=== PATIENT | female | born 1995 | race African-American/Black ===

== ENCOUNTER 2017-07-06 19:23 | Emergency (ER) | payer SELFPAY ==
[~2017-07-06] VITALS: Ht 170.2 cm; Wt 68.0 kg
[~2017-07-06 19:23] MED LIST: ATIVAN0.5 MG ORAL; NKM; SILVADENE CREAM50 GM TOP; VICODIN ES1 EA ORAL; [UNRECOGNIZED DRUG - OTHER]
[2017-07-06] MEDS ORDERED: NKM (19:28)
[2017-07-06 19:34] VITALS: BP 96/61
[2017-07-06 19:53] LABS: APPEARANCE,URINE CLEAR; BILIRUBIN, URINE NEGATIVE (NEGATIVE); COLOR,URINE YELLOW; GLUCOSE, URINE (UA) NEGATIVE (NEGATIVE); KETONES,URINE 1+ (NEGATIVE); LEUKOCYTE ESTERASE ,URINE 2+ (NEGATIVE); NITRITE,URINE NEGATIVE (NEGATIVE); PH,URINE 5 (4.5-8.0); PROTEIN,URINE NEGATIVE (NEGATIVE); UROBILINOGEN,URINE 1 MG/DL (0.0-1.0)
[2017-07-06] MEDS ORDERED: PEPCID40 MG PO (19:54)
[2017-07-06] MEDS ORDERED: MAALOX MAXIMUM355 M1 PO (19:54)
[2017-07-06] MEDS ORDERED: Mylanta II UD 30ml ORAL ONE (20:00)
[2017-07-06] MEDS ORDERED: Lidocaine 2% Visc 15ml soln ORAL ONE (20:00)
[2017-07-06 20:04] VITALS: BP 96/61
--- NOTE | 2017-07-06 20:16 | Emergency Room Report ---
History of Present Illness General Chief Complaint: Abdominal Pain Source: Patient Present Illness HPI 21YOF walk-in with 6 months intermittent Epigastric pain, occurs after eating any food, spicy or not. No associated nausea, vomiting, diarrhea. No recent or or contacts. No history of ulcers, a ladder disease or prior abdominopelvic surgery. Has not taken any [id number] medication for pain. Currently does not have any pain. Denies any associated urinary symptoms. Allergies: Coded Allergies: No Known Allergies (Unverified , 11/04/12) Patient History Past Medical History: none Past Surgical History: none Pertinent Family History: none Social History: Denies: smoking, alcohol use, drug use Last Menstrual Period: 2 weeks ago Now: No Immunizations: UTD Reviewed Nursing Documentation: PSxH: Agreed Nursing Documentation-PMH Past Medical History: No Stated History Review of Systems All Other Systems: negative except mentioned in HPI Physical Exam Vital Signs Date Time Temp Pulse Resp B/P (MAP) Pulse Ox O2 Delivery O2 Flow Rate FiO2 07/06/17 19:25 97.9 92 16 96/61 99 Room Air Sp02 EP Interpretation: reviewed, normal General Appearance: normal inspection, well appearing, no apparent distress, alert, GCS 15, non-toxic Head: normocephalic, atraumatic Eyes: bilateral eye PERRL, bilateral eye EOMI ENT: normal ENT inspection, hearing grossly normal, normal pharynx, no angioedema, normal voice, TMs + canals normal, uvula midline, moist mucus membranes Neck: normal inspection, full range of motion, supple, thyroid normal, no meningismus, no bony tend Respiratory: normal inspection, lungs clear, normal breath sounds, no rhonchi, no respiratory distress, no retraction, no accessory muscle use, no wheezing, speaking full sentences Cardiovascular #1: regular rate, rhythm, no edema, no JVD, normal capillary refill Gastrointestinal: normal inspection, normal bowel sounds, soft, no mass, no peritonitis, non-distended, no guarding, no hernia, no pulsatile mass, other - Mild epigastric tenderness to palpation Genitourinary: no CVA tenderness Musculoskeletal: normal inspection, back normal, normal range of motion, no calf tenderness, pelvis stable, Jim's Sign negative Neurologic: normal inspection, alert, oriented x3, responsive, 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 Nonfocal abdomen on exam Given epigastric tenderness possible gastritis given worsening with eating Will do trial of Pepcid with when necessary Maalox Understands to followup with PMD for GI referral if no improvement to evaluate with endoscopy for possible ulcers or PUD ER course: Patient has remained stable during ED stay. Disposition: Patient is to be discharged to home. Prescriptions given are pepcid, maalox Patient is instructed to follow up with their primary care doctor within 5 days. Strict return precautions discussed with patient such as fever, chills, worsening/severe pain, nausea, vomiting, which may indicate severe illness. Patient verbalizes understanding and agrees with plan. Please note that this Emergency Department Report was dictated using [employer]uminating engineer technology software, occasionally this can lead to erroneous entry secondary to interpretation by the dictation equipment Last Vital Signs Date Time Temp Pulse Resp B/P (MAP) Pulse Ox O2 Delivery O2 Flow Rate FiO2 07/06/17 20:04 97.9 92 16 96/61 99 Room Air Status: improved Disposition: HOME, SELF-CARE Condition: Improved Scripts Famotidine (PEPCID) 40 Mg Tablet 40 MG PO DAILY for 14 Days, #14 TAB 0 Refills Prov: WINNIE WHEATLEY M.D. 07/06/17 Mag Hydrox/Al Hydrox/Simeth (MAALOX MAXIMUM STRENGTH SUSP) 355 Ml Oral.susp 10 ML PO TID for 7 for 7 Days, #1 UNIT Prov: WINNIE WHEATLEY M.D. 07/06/17 Patient Instructions: Gastritis, Adult, [id number] Additional Instructions: - Take pepcid every morning for 1-2 weeks or until symptoms STOP - STOP eating spicy food - use maalox during the day for pain after eating WINNIE WHEATLEY M.D. Jul 06, 2017 20:16
== END 2017-07-06 20:04 | disposition home or self-care (01) ==
LOC: EMR 19:51
DX: K29.70 Gastritis, unspecified, without bleeding (principal)
CPT/HCPCS: 81003; 81025; 99283

== ENCOUNTER 2018-01-05 20:58 | Emergency (ER) | payer SELFPAY ==
[~2018-01-05] VITALS: Ht 172.7 cm; Wt 72.6 kg
[~2018-01-05 20:58] MED LIST changes: +MAALOX MAXIMUM355 M1 PO; +PEPCID40 MG PO
--- NOTE | 2018-01-05 21:08 | Emergency Room Report ---
History of Present Illness General Chief Complaint: Behavioral Complaint Source: Patient, EMS Present Illness HPI Patient present by paramedics escorted by police department Patient was reported to be agitated screaming patient had also reported Auditory hallucinations Patient was given IM injection of versed and presents more calm and cooperative Currently denies any suicidal thoughts Denies any chest pain or shortness of breath Allergies: Coded Allergies: No Known Allergies (Unverified , 01/05/18) Patient History Past Medical History: see triage record Pertinent Family History: none Last Menstrual Period: last month Reviewed Nursing Documentation: PMH: Agreed; PSxH: Agreed Nursing Documentation-PMH Past Medical History: No Stated History Review of Systems All Other Systems: negative except mentioned in HPI Physical Exam Vital Signs Date Time Temp Pulse Resp B/P (MAP) Pulse Ox O2 Delivery O2 Flow Rate FiO2 01/05/18 20:40 98.0 88 20 115/80 100 Room Air 98.1 Sp02 EP Interpretation: reviewed, normal General Appearance: well appearing, no apparent distress Head: normocephalic, atraumatic Eyes: bilateral eye PERRL, bilateral eye EOMI ENT: hearing grossly normal, normal pharynx, TMs + canals normal, uvula midline Neck: full range of motion, supple, no meningismus, no bony tend Respiratory: lungs clear, normal breath sounds, no rhonchi, no respiratory distress, no retraction, no accessory muscle use Cardiovascular #1: normal peripheral pulses, regular rate, rhythm, no edema, no gallop, no JVD, no murmur Gastrointestinal: normal bowel sounds, non tender, soft, no mass, no organomegaly, non-distended, no guarding, no hernia, no pulsatile mass, no rebound Genitourinary: no CVA tenderness Musculoskeletal: normal inspection Neurologic: oriented x3, responsive, 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, motor strength/ tone normal, sensory intact Psychiatric: no suicidal/homicidal ideation - However the patient does report auditory hallucinations cannot give specifics Skin: normal color, no rash, warm/dry, palpation normal Lymphatic: normal inspection, no adenopathy Medical Decision Making Diagnostic Impression: Primary Impression: Behavioral disorder Additional Impression: Auditory hallucinations ER Course Family has arrived as well her sister drove from [place] Reports that there is no family history of any psychiatric history And that the patient has not had any previous history At this time blood work reveals negative urine drug screen Patient requires further psychiatric evaluation Labs Test 01/05/18 00:04 01/05/18 21:38 White Blood Count 7.3 K/UL (4.8-10.8) Red Blood Count 4.44 M/UL (4.20-5.40) Hemoglobin 12.5 G/DL (12.0-16.0) Hematocrit 37.0 % (37.0-47.0) Mean Corpuscular Volume 83 FL (80-99) Mean Corpuscular Hemoglobin 28.2 PG (27.0-31.0) Mean Corpuscular Hemoglobin Concent 33.9 G/DL (32.0-36.0) Red Cell Distribution Width 11.0 % (11.6-14.8) Platelet Count 314 K/UL (150-450) Mean Platelet Volume 6.8 FL (6.5-10.1) Neutrophils (%) (Auto) 58.0 % (45.0-75.0) Lymphocytes (%) (Auto) 35.0 % (20.0-45.0) Monocytes (%) (Auto) 5.9 % (1.0-10.0) Eosinophils (%) (Auto) 0.2 % (0.0-3.0) Basophils (%) (Auto) 0.9 % (0.0-2.0) Sodium Level 139 MMOL/L (136-145) Potassium Level 3.2 MMOL/L (3.5-5.1) Chloride Level 104 MMOL/L (98-107) Carbon Dioxide Level 25 MMOL/L (21-32) Anion Gap 10 mmol/L (5-15) Blood Urea Nitrogen 11 mg/dL (7-18) Creatinine 0.8 MG/DL (0.55-1.30) Estimat Glomerular Filtration Rate > 60 mL/min (>60) Glucose Level 86 MG/DL (74-106) Calcium Level 8.8 MG/DL (8.5-10.1) Total Bilirubin 0.4 MG/DL (0.2-1.0) Aspartate Amino Transf (AST/SGOT) 21 U/L (15-37) Alanine Aminotransferase (ALT/SGPT) 17 U/L (12-78) Alkaline Phosphatase 44 U/L (46-116) Total Protein 7.5 G/DL (6.4-8.2) Albumin 3.6 G/DL (3.4-5.0) Globulin 3.9 g/dL Albumin/Globulin Ratio 0.9 (1.0-2.7) Salicylates Level 1.0 ug/mL (2.8-20) Acetaminophen Level < 2 MCG/ML (10-30) Serum Alcohol < 3 mg/dL Urine HCG, Qualitative Negative (NEGATIVE) Urine Opiates Screen Negative (NEGATIVE) Urine Barbiturates Screen Negative (NEGATIVE) Phencyclidine (PCP) Screen Negative (NEGATIVE) Urine Amphetamines Screen Negative (NEGATIVE) Urine Benzodiazepines Screen Positive (NEGATIVE) Urine Cocaine Screen Negative (NEGATIVE) Urine Marijuana (THC) Screen Negative (NEGATIVE) Last Vital Signs Date Time Temp Pulse Resp B/P (MAP) Pulse Ox O2 Delivery O2 Flow Rate FiO2 01/05/18 20:40 98.0 88 20 115/80 100 Room Air 98.1 Status: improved Disposition: XFER TO PSYCH HOSP/UNIT Condition: Improved Herberth Gao DO Jan 05, 2018 21:08
[2018-01-05 21:34] VITALS: BP 118/78
[2018-01-05] MEDS ORDERED: Haloperidol 5mg/ml Inj IM ONE (22:00)
[2018-01-05] MEDS ORDERED: DiphenhydrAMINE 50mg/ml Inj IM ONE (22:00)
[2018-01-05 23:18] VITALS: BP 121/69
[2018-01-06 00:27] LABS: BASOPHILS % (AUTO) 0.9 % (0.0-2.0); EOSINOPHILS % (AUTO) 0.2 % (0.0-3.0); HEMOGLOBIN 12.5 G/DL (12.0-16.0); MEAN CORPUSCULAR VOLUME 83 FL (80-99); MONOCYTES % (AUTO) 5.9 % (1.0-10.0); PLATELET COUNT 314 K/UL (150-450); RED BLOOD COUNT 4.44 M/UL (4.20-5.40); WHITE BLOOD COUNT 7.3 K/UL (4.8-10.8)
[2018-01-06 00:45] LABS: ANION GAP 10 mmol/L (5-15); BLOOD UREA NITROGEN 11 mg/dL (7-18); CALCIUM 8.8 MG/DL (8.5-10.1); CARBON DIOXIDE 25 MMOL/L (21-32); CHLORIDE 104 MMOL/L (98-107); CREATININE 0.8 MG/DL (0.55-1.30); POTASSIUM 3.2 MMOL/L (3.5-5.1); SODIUM 139 MMOL/L (136-145)
[2018-01-06 00:46] LABS: ALANINE AMINOTRANSFERASE 17 U/L (12-78); ALBUMIN 3.6 G/DL (3.4-5.0); ALBUMIN/GLOBULIN RATIO 0.9 (1.0-2.7); ALKALINE PHOSPHATASE 44 U/L (46-116); ASPARTATE AMINO TRANSFERASE 21 U/L (15-37); BILIRUBIN,TOTAL 0.4 MG/DL (0.2-1.0)
[2018-01-06 01:15] VITALS: BP 114/54
[2018-01-06 02:34] VITALS: BP 110/62
[2018-01-06 04:05] VITALS: BP 110/62
[2018-01-06 06:53] VITALS: BP 112/68
[2018-01-06 09:14] VITALS: BP 124/72
[2018-01-06] MEDS ORDERED: RISPERDAL2 MG ORAL (11:37)
[2018-01-06 11:46] VITALS: BP 95/57
--- NOTE | 2018-01-06 12:07 | Emergency Room Report ---
Physical Exam Vital Signs Date Time Temp Pulse Resp B/P (MAP) Pulse Ox O2 Delivery O2 Flow Rate FiO2 01/05/18 20:40 98.0 88 20 115/80 100 Room Air 98.1 Medical Decision Making Diagnostic Impression: Primary Impression: Behavioral disorder Additional Impression: Auditory hallucinations ER Course Hospital Course 22-year-old female presents to ED with bizarre behavior Clinical course Patient initially seen and evaluated by Dr Gao; please see his note for full history and physical Labs-electrolytes normal, aspirin/Tylenol levels normal, EtOH level normal I assessed the patient in the morning. Patient awake alert oriented 3. Calm and cooperative during exam. Normal eye contact. Patient states that she felt overwhelmed yesterday. Family at bedside. Patient states she has heard voices in the past. No family psychiatric history. Family at bedside and patient state that they would prefer not to see a psychiatrist. States that it is a stigma in the culture. Family is from [facility]. They prefer to take the patient back to [facility] to "take care of her" . I do believe patient would benefit from medication and psychiatric evaluation however I do not believe the patient is a danger to herself or others Dr. Dallas at bedside to evaluate the patient. She agrees with assessment. Recommends Risperdal and outpatient mental health evaluation. Patient safe for discharge i. I feel this is a highly complex case requiring extensive working including EKG/Rhythm strip, Xray/CT/US, Blood/urine lab work, repeat exams while in ED, and administration of strong opiates/narcotics for pain control, admission to hospital or close patient follow up. Diagnosis - behavioral disorder, auditory hallucinations Stable and discharged to home with Rx Risperdol. Followup with PMD/ psychiatrist. Return to ED if symptoms recur or worsen Labs Test 01/05/18 00:04 01/05/18 21:38 White Blood Count 7.3 K/UL (4.8-10.8) Red Blood Count 4.44 M/UL (4.20-5.40) Hemoglobin 12.5 G/DL (12.0-16.0) Hematocrit 37.0 % (37.0-47.0) Mean Corpuscular Volume 83 FL (80-99) Mean Corpuscular Hemoglobin 28.2 PG (27.0-31.0) Mean Corpuscular Hemoglobin Concent 33.9 G/DL (32.0-36.0) Red Cell Distribution Width 11.0 % (11.6-14.8) Platelet Count 314 K/UL (150-450) Mean Platelet Volume 6.8 FL (6.5-10.1) Neutrophils (%) (Auto) 58.0 % (45.0-75.0) Lymphocytes (%) (Auto) 35.0 % (20.0-45.0) Monocytes (%) (Auto) 5.9 % (1.0-10.0) Eosinophils (%) (Auto) 0.2 % (0.0-3.0) Basophils (%) (Auto) 0.9 % (0.0-2.0) Sodium Level 139 MMOL/L (136-145) Potassium Level 3.2 MMOL/L (3.5-5.1) Chloride Level 104 MMOL/L (98-107) Carbon Dioxide Level 25 MMOL/L (21-32) Anion Gap 10 mmol/L (5-15) Blood Urea Nitrogen 11 mg/dL (7-18) Creatinine 0.8 MG/DL (0.55-1.30) Estimat Glomerular Filtration Rate > 60 mL/min (>60) Glucose Level 86 MG/DL (74-106) Calcium Level 8.8 MG/DL (8.5-10.1) Total Bilirubin 0.4 MG/DL (0.2-1.0) Aspartate Amino Transf (AST/SGOT) 21 U/L (15-37) Alanine Aminotransferase (ALT/SGPT) 17 U/L (12-78) Alkaline Phosphatase 44 U/L (46-116) Total Protein 7.5 G/DL (6.4-8.2) Albumin 3.6 G/DL (3.4-5.0) Globulin 3.9 g/dL Albumin/Globulin Ratio 0.9 (1.0-2.7) Salicylates Level 1.0 ug/mL (2.8-20) Acetaminophen Level < 2 MCG/ML (10-30) Serum Alcohol < 3 mg/dL Urine HCG, Qualitative Negative (NEGATIVE) Urine Opiates Screen Negative (NEGATIVE) Urine Barbiturates Screen Negative (NEGATIVE) Phencyclidine (PCP) Screen Negative (NEGATIVE) Urine Amphetamines Screen Negative (NEGATIVE) Urine Benzodiazepines Screen Positive (NEGATIVE) Urine Cocaine Screen Negative (NEGATIVE) Urine Marijuana (THC) Screen Negative (NEGATIVE) Last Vital Signs Date Time Temp Pulse Resp B/P (MAP) Pulse Ox O2 Delivery O2 Flow Rate FiO2 01/06/18 11:46 97.3 62 15 95/57 100 Room Air Status: improved Disposition: HOME, SELF-CARE Condition: Improved Scripts Risperidone* (RISPERDAL*) 2 Mg Tablet 2 MG ORAL QHS, #30 TAB 0 Refills Prov: Benito De Los Santos MD 01/06/18 Referrals: NOT CHOSEN [facility]/,REFERRING (PCP) Patient Instructions: Schizophrenia Benito De Los Santos MD Jan 06, 2018 12:07
== END 2018-01-06 12:15 | disposition home or self-care (01) ==
LOC: EDBD 20:58 → EMR 21:30 → MERGE 21:30 → EMR 01-06 12:15
DX: R44.0 Auditory hallucinations (principal); F91.9 Conduct disorder, unspecified
CPT/HCPCS: 36415; 80053; 80307; 81025; 85025; 96372; 99283; G0480; J1200; J1630; 80329

== ENCOUNTER 2020-03-15 17:50 | Emergency (ER) | payer OTHER ==
[~2020-03-15] VITALS: Ht 170.2 cm; Wt 81.6 kg
[~2020-03-15 17:50] MED LIST changes: +RISPERDAL2 MG ORAL
[2020-03-15 17:58] VITALS: BP 108/74
[2020-03-15 18:35] LABS: APPEARANCE,URINE SLIGHTLY CLOUDY; BILIRUBIN, URINE NEGATIVE (NEGATIVE); COLOR,URINE PALE YELLOW; GLUCOSE, URINE (UA) NEGATIVE (NEGATIVE); KETONES,URINE NEGATIVE (NEGATIVE); LEUKOCYTE ESTERASE ,URINE 3+ (NEGATIVE); NITRITE,URINE NEGATIVE (NEGATIVE); PH,URINE 6 (4.5-8.0); PROTEIN,URINE NEGATIVE (NEGATIVE); UROBILINOGEN,URINE NORMAL MG/DL (0.0-1.0)
[2020-03-15 18:40] LABS: BASOPHILS % (AUTO) 1.6 % (0.0-2.0); EOSINOPHILS % (AUTO) 1.4 % (0.0-3.0); HEMATOCRIT 41.8 % (37.0-47.0); LYMPHOCYTES % (AUTO) 35.7 % (20.0-45.0); MEAN CORPUSCULAR VOLUME 87 FL (80-99); MONOCYTES % (AUTO) 5.5 % (1.0-10.0); NEUTROPHILS % (AUTO) 55.8 % (45.0-75.0); PLATELET COUNT 330 K/UL (150-450); RED BLOOD COUNT 4.79 M/UL (4.20-5.40); WHITE BLOOD COUNT 6.1 K/UL (4.8-10.8)
[2020-03-15 18:52] LABS: ANION GAP 7 mmol/L (5-15); BLOOD UREA NITROGEN 11 mg/dL (7-18); CALCIUM 9.1 MG/DL (8.5-10.1); CARBON DIOXIDE 29 MMOL/L (21-32); CHLORIDE 102 MMOL/L (98-107); POTASSIUM 3.7 MMOL/L (3.5-5.1); SODIUM 138 MMOL/L (136-145)
--- NOTE | 2020-03-15 18:52 | Emergency Room Report ---
History of Present Illness General Chief Complaint: Abdominal Pain Source: Patient Present Illness HPI 24 YO female presents to the ED c/o 12/03 in severity cramping lower abdominal discomfort intermittently x 2 weeks. Pt. is concerned she may be . She reports using at home test which was negative. She denies dysuria, urinary frequency or urgency. Patient reports her last menstrual cycle was around this time last month. Patient reports she is sexually active with her and is not currently on control. She denies previous pregnancies in the past. She denies significant past medical history. She denies taking any medications. She denies fevers or chills. She denies low back pain. She reports some episodes of nausea without vomiting. No other aggravating relieving factors at this time. Patient reports she is currently not having any abdominal pain but states her symptoms are intermittent. Allergies: Coded Allergies: No Known Allergies (Unverified , 11/04/12) COVID-19 Screening Contact w/high risk pt: No Experienced COVID-19 symptoms?: No COVID-19 Testing performed GEOGRAPHIC ANALYST: No Patient History Past Medical History: see triage record Past Surgical History: none Pertinent Family History: none Last Menstrual Period: 03/10/2020 Reviewed Nursing Documentation: PMH: Agreed; PSxH: Agreed Nursing Documentation-PMH Past Medical History: No Stated History Review of Systems All Other Systems: negative except mentioned in HPI Physical Exam Vital Signs Date Time Temp Pulse Resp B/P (MAP) Pulse Ox O2 Delivery O2 Flow Rate FiO2 03/15/20 17:54 98.1 93 20 108/74 (85) 96 Room Air Sp02 EP Interpretation: reviewed, normal General Appearance: no apparent distress, alert, GCS 15, non-toxic Head: normocephalic, atraumatic Eyes: bilateral eye normal inspection, bilateral eye PERRL ENT: hearing grossly normal, normal voice Neck: full range of motion Respiratory: chest non-tender, lungs clear, normal breath sounds, speaking full sentences Cardiovascular #1: regular rate, rhythm Gastrointestinal: normal bowel sounds, non tender, soft, non-distended, no guarding Rectal: deferred Genitourinary: normal inspection, no CVA tenderness, adnexa normal Musculoskeletal: back normal, normal range of motion, gait/station normal, non- tender Neurologic: alert, motor strength/tone normal, oriented x3, sensory intact, responsive, speech normal Psychiatric: judgement/insight normal Skin: no rash, normal color Lymphatic: no adenopathy Medical Decision Making PA Attestation Dr. Bang is my supervising Physician whom patient management has been discussed with. Diagnostic Impression: Primary Impression: UTI (urinary tract infection) Qualified Codes: N30.01 - Acute cystitis with hematuria Additional Impression: Negative test ER Course 24 YO female presents to the ED c/o 12/03 in severity cramping lower abdominal discomfort intermittently x 2 weeks. Pt. is concerned she may be . She reports using at home test which was negative. She denies dysuria, urinary frequency or urgency. Patient reports her last menstrual cycle was around this time last month. Patient reports she is sexually active with her and is not currently on control. She denies previous pregnancies in the past. She denies significant past medical history. She denies taking any medications. She denies fevers or chills. She denies low back pain. She reports some episodes of nausea without vomiting. No other aggravating relieving factors at this time. Patient reports she is currently not having any abdominal pain but states her symptoms are intermittent. Ddx considered but are not limited to Diverticulitis, acute appendicitis, diarrhea,UC, PUD, GE, pancreatitis, gallstone, ovarian torsion, ectopic , PID tubo-ovarian abscess. Vital signs: are WNL, pt. is afebrile H&PE are most consistent with female of reproductive age complaining of lower abdominal cramping in addition to suspicion of being . No acute abdomen on exam. Patient is nontoxic in appearance and in no acute distress. ORDERS: -CBC, CMP, LIPASE: -UA: presence of bacteria in addition to blood and increased inflammatory alfonzo ers. -URINE HCG:Negative ED INTERVENTIONS: - None required at this time. - -I do not identify an emergent condition at this time. With current presentation, pt. is stable for close outpatient follow up and conservative treatment. D/w pt. to return promptly to ED with worsening or new symptoms.- Pt. verbalizes' understanding and agreement with proposed treatment plan. DISCHARGE: At this time pt. is stable for d/c to home. Will provide printed patient care instructions, and any necessary prescriptions. Care plan and follow up instructions have been discussed with the patient prior to discharge. Labs Test 03/15/20 18:03 03/15/20 18:20 Urine Color Pale yellow Urine Appearance Slightly cloudy Urine pH 6 (4.5-8.0) Urine Specific [place] 1.020 (1.005-1.035) Urine Protein Negative (NEGATIVE) Urine Glucose (UA) Negative (NEGATIVE) Urine Ketones Negative (NEGATIVE) Urine Blood 3+ (NEGATIVE) Urine Nitrite Negative (NEGATIVE) Urine Bilirubin Negative (NEGATIVE) Urine Urobilinogen Normal MG/DL (0.0-1.0) Urine Leukocyte Esterase 3+ (NEGATIVE) Urine RBC 5-10 /HPF (0 - 2) Urine WBC 15-20 /HPF (0 - 2) Urine Squamous Epithelial Cells Many /LPF (NONE/OCC) Urine Bacteria Many /HPF (NONE) Urine HCG, Qualitative Negative (NEGATIVE) White Blood Count 6.1 K/UL (4.8-10.8) Red Blood Count 4.79 M/UL (4.20-5.40) Hemoglobin 14.0 G/DL (12.0-16.0) Hematocrit 41.8 % (37.0-47.0) Mean Corpuscular Volume 87 FL (80-99) Mean Corpuscular Hemoglobin 29.1 PG (27.0-31.0) Mean Corpuscular Hemoglobin Concent 33.4 G/DL (32.0-36.0) Red Cell Distribution Width 12.0 % (11.6-14.8) Platelet Count 330 K/UL (150-450) Mean Platelet Volume 6.9 FL (6.5-10.1) Neutrophils (%) (Auto) 55.8 % (45.0-75.0) Lymphocytes (%) (Auto) 35.7 % (20.0-45.0) Monocytes (%) (Auto) 5.5 % (1.0-10.0) Eosinophils (%) (Auto) 1.4 % (0.0-3.0) Basophils (%) (Auto) 1.6 % (0.0-2.0) Sodium Level 138 MMOL/L (136-145) Potassium Level 3.7 MMOL/L (3.5-5.1) Chloride Level 102 MMOL/L (98-107) Carbon Dioxide Level 29 MMOL/L (21-32) Anion Gap 7 mmol/L (5-15) Blood Urea Nitrogen 11 mg/dL (7-18) Creatinine 1.0 MG/DL (0.55-1.30) Estimat Glomerular Filtration Rate > 60 mL/min (>60) Glucose Level 79 MG/DL (74-106) Calcium Level 9.1 MG/DL (8.5-10.1) Total Bilirubin 0.2 MG/DL (0.2-1.0) Aspartate Amino Transf (AST/SGOT) 13 U/L (15-37) Alanine Aminotransferase (ALT/SGPT) 11 U/L (12-78) Alkaline Phosphatase 64 U/L (46-116) Total Protein 7.3 G/DL (6.4-8.2) Albumin 3.8 G/DL (3.4-5.0) Globulin 3.5 g/dL Albumin/Globulin Ratio 1.1 (1.0-2.7) Lipase 86 U/L (73-393) Last Vital Signs Date Time Temp Pulse Resp B/P (MAP) Pulse Ox O2 Delivery O2 Flow Rate FiO2 03/15/20 17:58 98.1 93 20 108/74 96 Room Air Status: improved Disposition: HOME, SELF-CARE Condition: Stable Scripts Cephalexin* (KEFLEX*) 500 Mg Capsule 500 MG ORAL EVERY 12 HOURS for 7 Days, #14 CAP 0 Refills Prov: Torie Houston 03/15/20 Phenazopyridine Hcl* (PYRIDIUM*) 100 Mg Tablet 100 MG ORAL THREE TIMES A DAY for 3 Days, #9 TAB Prov: Torie Houston 03/15/20 Referrals: Sebastián MEDINA,REFERRING (PCP) Patient Instructions: Urinary Tract Infection Additional Instructions: Take medications as directed. Follow up with a Primary Care Provider in 3-5 days, even if your symptoms have resolved. --Please review list of primary care clinics and woman clinics, if you do not already have a primary care provider Return sooner to ED if new symptoms occur, or current symptoms become worse. - Please note that this Emergency Department Report was dictated using [employer] program associate technology software, occasionally this can lead to erroneous entry secondary to interpretation by the dictation equipment. Torie Houston Mar 15, 2020 18:52
[2020-03-15 18:56] LABS: ALANINE AMINOTRANSFERASE 11 U/L (12-78); ALBUMIN 3.8 G/DL (3.4-5.0); ALBUMIN/GLOBULIN RATIO 1.1 (1.0-2.7); ALKALINE PHOSPHATASE 64 U/L (46-116); ASPARTATE AMINO TRANSFERASE 13 U/L (15-37); BILIRUBIN,TOTAL 0.2 MG/DL (0.2-1.0)
[2020-03-15] MEDS ORDERED: CEPHALEXIN500 MG ORAL (19:13)
[2020-03-15] MEDS ORDERED: PHENAZOPYRIDIN100 MG ORAL (19:13)
[2020-03-15] MEDS ORDERED: Phenazopyridine 200mg tab ORAL ONE (19:15)
[2020-03-15 19:31] VITALS: BP 108/74
== END 2020-03-15 19:32 | disposition home or self-care (01) ==
LOC: EMR 18:08
DX: N30.01 Acute cystitis with hematuria (principal); R11.0 Nausea
CPT/HCPCS: 36415; 80053; 81003; 81025; 83690; 85025; 87086; Z7502; 99283

== ENCOUNTER 2020-03-30 03:46 | Emergency (ER) | payer OTHER ==
[~2020-03-30] VITALS: Ht 170.2 cm; Wt 81.6 kg
[~2020-03-30 03:46] MED LIST changes: +CEPHALEXIN500 MG ORAL; +PHENAZOPYRIDIN100 MG ORAL
[2020-03-30 04:00] VITALS: BP 110/71
--- NOTE | 2020-03-30 04:14 | Emergency Room Report ---
History of Present Illness General Chief Complaint: General Complaint Source: Patient Present Illness [facility] This is a 24-year-old female with no past medical history. She presents with chief complaint of spitting up some blood. This occurred just prior to arrival. She said that she felt something was in her throat and when she spit it out, she noticed specks of blood. She said this happened 5 times and now resolved. No pain. No nausea no vomiting. No fever chills. No abdominal pain. No trauma. She has not eaten anything prior to this. Last time she ate something was for dinner. Allergies: Coded Allergies: No Known Allergies (Unverified , 03/30/20) COVID-19 Screening Contact w/high risk pt: No Experienced COVID-19 symptoms?: No COVID-19 Testing performed REFRIGERATING OILER: No Patient History Past Medical History: see triage record, old chart reviewed Past Surgical History: none Pertinent Family History: none Social History: Denies: smoking Last Menstrual Period: 03/10/20 Now: No : 0 Para: 0 Immunizations: other Reviewed Nursing Documentation: PMH: Agreed; PSxH: Agreed Nursing Documentation-PMH Past Medical History: No Stated History Review of Systems Eye: Denies: eye pain, blurred vision ENT: Denies: ear pain, nose congestion, throat swelling Respiratory: Denies: cough, shortness of breath Cardiovascular: Denies: chest pain, palpitations Gastrointestinal: Denies: abdominal pain, diarrhea, nausea, vomiting Musculoskeletal: Denies: back pain, joint pain Skin: Denies: rash Neurological: Denies: headache, numbness Endocrine: Denies: increased thirst, increased urine Hematologic/Lymphatic: Denies: easy bruising All Other Systems: negative except mentioned in HPI Physical Exam Vital Signs Date Time Temp Pulse Resp B/P (MAP) Pulse Ox O2 Delivery O2 Flow Rate FiO2 03/30/20 03:50 98.6 81 16 110/71 (84) 97 Room Air Vitals normal Sp02 EP Interpretation: reviewed, normal General Appearance: well appearing, no apparent distress, alert Head: normocephalic, atraumatic Eyes: bilateral eye PERRL, bilateral eye EOMI ENT: hearing grossly normal, normal pharynx Neck: full range of motion, supple, no meningismus Respiratory: chest non-tender, lungs clear, normal breath sounds Cardiovascular #1: regular rate, rhythm, no murmur Gastrointestinal: normal bowel sounds, non tender, no mass, no organomegaly, no bruit, non-distended Musculoskeletal: back normal, normal range of motion, gait/station normal Psychiatric: mood/affect normal Medical Decision Making Diagnostic Impression: Primary Impression: Spitting up blood ER Course Patient said that she spit out a small speck of blood. Her lungs are clear. She is not tachycardic or tachypneic. Observation is normal. She says she did not cough it out. She just spit it out. When I asked her to do the same thing here there is no blood. She denies any symptoms right now. I see low risk for PE, upper GI bleed. I suspect may be trauma to the tonsil, uvula or oropharynx. No obvious trauma now. X-rays unremarkable. Discharged home. Other X-Ray Diagnostic Results Other X-Ray Diagnostic Results : X-Ray ordered: Soft tissue neck # of Views/Limited Vs Complete: Complete Indication: Pain Impression: Other - Refused x-rays because she claimed that she is even though test was negative. Electronically Signed by: Tucker Givens MD Last Vital Signs Date Time Temp Pulse Resp B/P (MAP) Pulse Ox O2 Delivery O2 Flow Rate FiO2 03/30/20 04:00 81 16 Room Air 03/30/20 04:00 98.6 110/71 97 Status: improved Disposition: HOME, SELF-CARE Condition: Stable Referrals: Sebastián MEDINA,REFERRING (PCP) Additional Instructions: Follow-up with In 7 days. Return if symptoms worsen. Tucker Givens MD Mar 30, 2020 04:14
[2020-03-30 05:40] VITALS: BP 111/75
== END 2020-03-30 05:40 | disposition home or self-care (01) ==
LOC: EMR 04:08
DX: R04.2 Hemoptysis (principal)
CPT/HCPCS: 81025; Z7502; 99282